=== PATIENT | female | born 1980 | race Hispanic/Latino ===

== ENCOUNTER 2016-10-17 17:04 | Emergency (ER) | payer MEDICAID ==
--- NOTE | 2016-10-17 20:24 | Emergency Department Report ---
ED Rash HPI - HPI Chief Complaint: Skin Rash Stated Complaint: RASH ON FACE Time Seen by Provider: 10/17/16 20:13 Location: Head Rash Symptoms: Yes Itching, Yes Myalgias, No Facial Swelling, No Tongue/Oral Swelling, No Breathing Difficulties, No Choking Sensation, No Wheezing/Dyspnea, No Peeling, No Blistering, No Fever, No Lightheaded, No Malaise Severity: mild Other History: 36F PMH morbid obesity p/w c/o 2-3 days of cheek rash. Pt AAOx3, NAD, states she ate cherries 2-3 days ago and developed facial rash 12 hours later, pt is suspicious she may be allergic to ceherries as this has happeend to her before. States rash has gotten better but still present on cheeck regions. Deneis any SOB, no malaise, denies headache, dizziness. States she has been applying bacitracin ointment to cheek regions where skin is red. ED Review of Systems ROS: Stated complaint: RASH ON FACE Other details as noted in HPI Constitutional: denies: chills, fever Eyes: denies: eye pain, eye discharge, vision change ENT: denies: ear pain, throat pain Respiratory: denies: cough, shortness of breath, wheezing Cardiovascular: denies: chest pain, palpitations Endocrine: no symptoms reported Gastrointestinal: denies: abdominal pain, nausea, diarrhea Genitourinary: denies: urgency, dysuria, discharge Musculoskeletal: denies: back pain, joint swelling, arthralgia Skin: rash, pruritus. denies: lesions Neurological: denies: headache, weakness, paresthesias Psychiatric: denies: anxiety, depression Hematological/Lymphatic: denies: easy bleeding, easy bruising ED Past Medical Hx - Past Medical History Previous Medical History?: No - Surgical History Past Surgical History?: No Additional Surgical History: . kidney - Social History Smoking Status: Never Smoker Substance Use Type: None - Medications Home Medications: Home Medications Medication Instructions Recorded Confirmed Last Taken Type traMADol [Ultram] 50 mg PO Q4HR PRN #15 tablet 08/19/13 Unknown Rx Hydrocortisone 1% [Hydrocortisone 1 applicatio TP TID #1 tube 06/25/15 Unknown Rx 1% CREAM] diphenhydrAMINE [Benadryl CAP] 25 mg PO Q6HR PRN #20 capsule 06/25/15 Unknown Rx Clindamycin [Clindamycin CAP] 300 mg PO Q6H #28 capsule 10/17/16 Unknown Rx Ibuprofen [Motrin] 600 mg PO Q8H PRN #20 tablet 10/17/16 Unknown Rx Mupirocin [Bactroban 2% CREAM] 1 applicatio TP TID #1 cream 10/17/16 Unknown Rx diphenhydrAMINE [Benadryl CAP] 25 mg PO Q8H PRN #20 capsule 10/17/16 Unknown Rx Rash Exam - Exam General: Vital signs noted. No distress. Alert and acting appropriately. HEENT: No Periorbital Edema, No Conjuctival Injection, No Chemosis, No Perioral Edema, No Tongue Edema, No Uvular Edema, No Compromised Airway, No Drooling Lungs: Yes Good Air Exchange (Normal Breath Sounds), No Wheezes, No Ronchi, No Stridor, No Cough, No Labored Respirations, No Retractions, No Use of Accessory Muscles, No Other Abnormal Lung Sounds Heart: Yes Regular, No Murmur Skin: Yes Tenderness (small areas of erythema b/l cheek regions regions, ), Yes Erythema, No Urticarial Rash, No Maculopapular Rash, No Morbilliform rash, No Bulla(e), No Excoriations, No Weeping, No Edema, No Encrustations, No Other Other: Positive: Abdomen Normal, Neurologic Normal, Musculoskeletal Normal ED Course Vital Signs 10/17/16 18:30 Temperature 97.4 F L Pulse Rate 73 Respiratory 18 Rate Blood Pressure 147/91 O2 Sat by Pulse 100 Oximetry ED Medical Decision Making - Medical Decision Making A/P: possible allergic reaction vs. early erysipelas 1-Given pts history less liekly to be allergic reaction, possible early erysipelas ( areas on face small less then 2-3 cm diamter on each cheek in malart regions) I will cover pt empirically with clindamycin 300 qid 7 day course as per uptodate, i advised pt to take a picture of her face to track any growth of erythema, i offered to jennifer borders but pt declined 2-I advised pt to f/u with her PMD if she notices recurrent malar rash to have SLE workup 3-I advised pt to return to the ED for rapid spread of erythema on face or any associated headache, fever, chills, nausea, vomiting, blurry vision, purulent drainage. pts does nto currently have these symptoms. 4- motrin prn, benadryl prn for itching, bactroban cream to small area of impetigo upper lip. Critical care attestation.: If time is entered above; I have spent that time in minutes in the direct care of this critically ill patient, excluding procedure time. ED Disposition Clinical Impression: Facial rash Cellulitis Qualifiers: Site of cellulitis: face Qualified Code(s): L03.211 - Cellulitis of face Disposition: DC- TO HOME OR SELFCARE Is pt being admited?: No Does the pt Need Aspirin: No Condition: Stable Instructions: Cellulitis (ED) Prescriptions: Clindamycin [Clindamycin CAP] 300 mg PO Q6H #28 capsule diphenhydrAMINE [Benadryl CAP] 25 mg PO Q8H PRN #20 capsule PRN Reason: Itching Ibuprofen [Motrin] 600 mg PO Q8H PRN #20 tablet PRN Reason: Pain Mupirocin [Bactroban 2% CREAM] 1 applicatio TP TID #1 cream Referrals: SONJA HERMAN MD [Staff Physician] - 3-5 Days [facility] [Provider Group] - 3-5 Days SHANNA AMARO MD [Staff Physician] - 3-5 Days Forms: Work/School Release Form(ED) Time of Disposition: 20:40
[2016-10-17 21:02] VITALS: BP 113/75
== END 2016-10-17 21:02 | disposition home or self-care (01) ==
LOC: ED 17:04
DX: L03.211 Cellulitis of face (principal); R21 Rash and other nonspecific skin eruption
CPT/HCPCS: 99282